=== PATIENT | male | born 1980 | race Caucasian/White ===

== ENCOUNTER → 2020-05-26 | Outpatient (CLI) | payer BC, MEDICARE ==
--- NOTE | 2020-05-26 15:32 | NEURO WORKBENCH EEG REPORT ---
EEG Report Patient: Andi Gamino ID: [id number] Referring Doctor: Axel Bhat Date: 05/26/2020 Reason for study: Evaluate Epileptiform activity Medications: Lisinopril, Atorvastatin, Omeprazole, Diazepam, Lamotrigine, Alprazolam, Quetiapine, Niacin, Lyrica, Propranolol History: This is a 39 year old male with a history of HTN, Hypercholesterolemia, cervical spine surgery, headaches, and seizures starting at age 14 (last seizure two years ago). This EEG was requested for evaluation of epileptiform activity. EEG Interpretation: This EEG was recorded during wakefulness, stage I, and stage II sleep. The awake EEG is characterized by a well organized background with reactive posterior dominant rhythm (PDR) of approximately 10-11 Hz. The remainder of the background consisted of low amplitude beta activity. The EEG is symmetric in amplitudes and frequencies. There were periods of myogenic artifact obscuring the background EEG> Photic stimulation resulted in photic driving, and there was no epileptiform activity elicited with photic stimulation. Stage I sleep was achieved and characterized by slow rolling eye movements, slowing of the background rhythm, and vertex waves. Stage II sleep was achieved and characterized by further background delta-theta activity and symmetric sleep spindles were noted. There were rare poorly formed sharply contoured waveforms in the left temporal region during stage I sleep which were not definitively epileptiform in etiology. There were no seizures. The EKG showed a regular rhythm with typically 65-80 beats per minute. EEG Impression: This EEG showed rare poorly formed sharply contoured waveforms in the left temporal region during stage I sleep. These did not appear consistent with wicket spikes (benign phenomenon), but did not appear definitively epileptiform in etiology either. However, it should be noted that the patient is taking Lamotrigine, Alprazolam, and Diazepam, all of which could potentially suppress interictal epileptiform activity. Further evaluation with an MRI of the brain to evaluate the left temporal region for any structural abnormality may be warranted. In addition, additional EEG evaluation should be considered if the clinical diagnosis of epilepsy that the patient carries is in question. INTERPRETING NEUROLOGIST: Phillip Joseph MD Board certified by the [employer] in Neurology, Clinical Neurophysiology, and Sleep Medicine [facility]
== END ==
LOC: NEURO 13:14
PROVIDERS: ATTEND Pediatrics
DX: R41.89 Other symptoms and signs involving cognitive functions and awareness (principal); R51.9 Headache, unspecified; Z79.899 Other long term (current) drug therapy
CPT/HCPCS: 95819